=== PATIENT | female | born 1985 | race Hispanic/Latino ===

== ENCOUNTER 2018-06-10 07:21 | Emergency (ER) | payer MEDICAID, OTHER ==
[~2018-06-10] VITALS: Ht 160 cm; Wt 73.5 kg
[~2018-06-10 07:21] MED LIST: NITROFURANTOIN100 M2 ORAL; PHENAZOPYRIDIN200 MG ORAL; ZOFRAN4 MG ORAL
[2018-06-10 07:27] VITALS: BP 106/70
[2018-06-10] MEDS ORDERED: METHOTREXATE2.5 MG PO (07:31)
[2018-06-10 07:56] LABS: APPEARANCE,URINE SLIGHTLY CLOUDY; BILIRUBIN, URINE NEGATIVE (NEGATIVE); GLUCOSE, URINE (UA) NEGATIVE (NEGATIVE); KETONES,URINE NEGATIVE (NEGATIVE); LEUKOCYTE ESTERASE ,URINE 3+ (NEGATIVE); NITRITE,URINE NEGATIVE (NEGATIVE); PH,URINE 7 (4.5-8.0); PROTEIN,URINE 2+ (NEGATIVE); UROBILINOGEN,URINE NORMAL MG/DL (0.0-1.0)
[2018-06-10 08:00] LABS: COLOR,URINE RED
--- NOTE | 2018-06-10 08:10 | Emergency Room Report ---
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 Patient required reconstructive surgery at that time Patient was here last week with symptoms of UTI After being seen here patient was seen by her primary physician And referral was made back to her colorectal specialist However apparently it was incorrectly made to the wrong specialist And patient's referral has been reinitiated Patient has increased discomfort in the suprapubic area She feels that she has increased rectal incontinence Which is similar to her previous condition Denies any upper abdominal pain denies any fevers denies any chest pain or shortness of breath Allergies: Coded Allergies: AMOXICILLIN (Verified Allergy, Unknown, 06/13/18) PENICILLINS (Verified Adverse Reaction, Severe, Shortness of Breath, ) Patient History Past Medical History: see triage record Pertinent Family History: none Last Menstrual Period: currently in her period Now: No Reviewed Nursing Documentation: PMH: Agreed; PSxH: Agreed Nursing Documentation-PMH Past Medical History: No History, Except For Review of Systems All Other Systems: negative except mentioned in HPI Physical Exam Vital Signs Date Time Temp Pulse Resp B/P (MAP) Pulse Ox O2 Delivery O2 Flow Rate FiO2 06/10/18 07:26 97.5 65 18 106/70 99 Room Air Sp02 EP Interpretation: reviewed, normal General Appearance: well appearing, no apparent distress Head: normocephalic, atraumatic Eyes: bilateral eye PERRL, bilateral eye EOMI ENT: hearing grossly normal, normal pharynx, TMs + canals normal, uvula midline Neck: full range of motion, supple, no meningismus, no bony tend Respiratory: lungs clear, normal breath sounds, no rhonchi, no respiratory distress, no retraction, no accessory muscle use Cardiovascular #1: normal peripheral pulses, regular rate, rhythm, no edema, no gallop, no JVD, no murmur Gastrointestinal: normal bowel sounds, non tender, soft, no mass, no organomegaly, non-distended, no guarding, no hernia, no pulsatile mass, no rebound Genitourinary: no CVA tenderness Musculoskeletal: normal inspection Neurologic: oriented x3, responsive, mounted police III-XII nml as tested, motor strength/ tone normal, sensory intact Psychiatric: mood/affect normal Skin: normal color, no rash, warm/dry, palpation normal Lymphatic: normal inspection, no adenopathy Medical Decision Making Diagnostic Impression: Primary Impression: Urinary tract infection Additional Impression: Fistula ER Course Patient has multiple differentials considered Given her history and presentation Repeat presentation of the fistula is possible Patient does not appear septic or toxic Initial blood work is appropriate Patient has follow-up with her colorectal specialist in the next several days I feel that this outpatient follow-up is most appropriate Patient did not have further imaging emergently given her nonseptic non-toxic presentation and consideration for the existing medical condition CBC negative Chemistry negative UA 60-80 white blood cells Last Vital Signs Date Time Temp Pulse Resp B/P (MAP) Pulse Ox O2 Delivery O2 Flow Rate FiO2 06/10/18 07:26 97.5 65 18 106/70 99 Room Air Status: improved Disposition: HOME, SELF-CARE Condition: Improved Scripts Phenazopyridine Hcl* (PYRIDIUM*) 100 Mg Tablet 100 MG ORAL THREE TIMES A DAY, #9 TAB Prov: Brett Vitale DO 06/10/18 Clindamycin Hcl (CLINDAMYCIN HCL) 300 Mg Capsule 300 MG ORAL THREE TIMES A DAY, #10 CAP Prov: Brett Vitale DO 06/10/18 Referrals: NON PHYSICIAN (PCP) Additional Instructions: Follow-up with your colorectal specialist as noted Brett Vitale DO Jun 10, 2018 08:10
[2018-06-10 08:24] LABS: BASOPHILS % (AUTO) 0.8 % (0.0-2.0); EOSINOPHILS % (AUTO) 1.3 % (0.0-3.0); HEMATOCRIT 41.4 % (37.0-47.0); HEMOGLOBIN 13.5 G/DL (12.0-16.0); LYMPHOCYTES % (AUTO) 21.4 % (20.0-45.0); MEAN CORPUSCULAR VOLUME 82 FL (80-99); MONOCYTES % (AUTO) 7.3 % (1.0-10.0); NEUTROPHILS % (AUTO) 69.2 % (45.0-75.0); PLATELET COUNT 322 K/UL (150-450); RED BLOOD COUNT 5.03 M/UL (4.20-5.40); RED CELL DISTRIBUTION WIDTH 12.7 % (11.6-14.8); WHITE BLOOD COUNT 9.5 K/UL (4.8-10.8)
[2018-06-10] MEDS ORDERED: Clindamycin 600mg 50 ML IVPB ONE (08:30)
[2018-06-10 08:43] LABS: ALANINE AMINOTRANSFERASE 43 U/L (12-78); ALBUMIN 3.7 G/DL (3.4-5.0); ALBUMIN/GLOBULIN RATIO 0.7 (1.0-2.7); ALKALINE PHOSPHATASE 77 U/L (46-116); ANION GAP 11 mmol/L (5-15); ASPARTATE AMINO TRANSFERASE 31 U/L (15-37); BILIRUBIN,TOTAL 0.4 MG/DL (0.2-1.0); BLOOD UREA NITROGEN 12 mg/dL (7-18); CALCIUM 8.8 MG/DL (8.5-10.1); CARBON DIOXIDE 24 MMOL/L (21-32); CHLORIDE 103 MMOL/L (98-107); CREATININE 0.7 MG/DL (0.55-1.30); POTASSIUM 3.8 MMOL/L (3.5-5.1); SODIUM 138 MMOL/L (136-145)
[2018-06-10] MEDS ORDERED: CLINDAMYCIN HC300 MG ORAL (09:13)
[2018-06-10] MEDS ORDERED: PHENAZOPYRIDIN100 MG ORAL (09:13)
[2018-06-10 09:26] VITALS: BP 115/85
== END 2018-06-10 09:27 | disposition home or self-care (01) ==
LOC: MERGE 07:50 → EMR 07:50
DX: N39.0 Urinary tract infection, site not specified (principal); Z88.0 Allergy status to penicillin
CPT/HCPCS: 36415; 80053; 81003; 81025; 85025; 87086; 87181; 96365; 99284; S0077

== ENCOUNTER 2019-01-28 14:52 | Emergency (ER) | payer OTHER ==
[~2019-01-28] VITALS: Ht 160 cm; Wt 73.5 kg
[~2019-01-28 14:52] MED LIST changes: +CLINDAMYCIN HC300 MG ORAL; +METHOTREXATE2.5 MG PO; +PHENAZOPYRIDIN100 MG ORAL
[2019-01-28 15:02] VITALS: BP 111/72
--- NOTE | 2019-01-28 15:03 | NUR ---
ED Nurse Note: Pt has been feeling urgency and burning sensation while urinating x 3 days. Pain 04/20. AOx4, VSS lamont. Will cont to monitor.
[2019-01-28] MEDS ORDERED: Phenazopyridine 200mg tab ORAL ONE (15:15)
[2019-01-28 15:27] LABS: APPEARANCE,URINE SLIGHTLY CLOUDY; BILIRUBIN, URINE NEGATIVE (NEGATIVE); COLOR,URINE PALE YELLOW; GLUCOSE, URINE (UA) NEGATIVE (NEGATIVE); KETONES,URINE 1+ (NEGATIVE); LEUKOCYTE ESTERASE ,URINE 3+ (NEGATIVE); NITRITE,URINE NEGATIVE (NEGATIVE); PH,URINE 5 (4.5-8.0); PROTEIN,URINE 3+ (NEGATIVE); UROBILINOGEN,URINE NORMAL MG/DL (0.0-1.0)
--- NOTE | 2019-01-28 15:37 | Emergency Room Report ---
History of Present Illness General Chief Complaint: Female Urogenital Problems Source: Patient Present Illness HPI 33-year-old female presents to the emergency department complaining of 10 out of 10 severity dysuria and urgency x3 days. Patient denies fevers, chills, low back pain, suspicion of or vaginal discharge. Patient denies having abdominal pain or tenderness. She denies nausea or vomiting. Patient states that she is currently on the Nexplanon implant. Denies hematuria she reports a history of UTI 8 months ago which presented with the same symptoms that she is experiencing today. No aggravating or relieving factors. Allergies: Coded Allergies: AMOXICILLIN (Verified Allergy, Unknown, 06/13/18) PENICILLINS (Verified Adverse Reaction, Severe, Shortness of Breath, ) Patient History Past Medical History: see triage record Past Surgical History: none Pertinent Family History: none Last Menstrual Period: 01/12/19 Now: No Reviewed Nursing Documentation: PMH: Agreed; PSxH: Agreed Nursing Documentation-PMH Past Medical History: No History, Except For Review of Systems All Other Systems: negative except mentioned in HPI Physical Exam Vital Signs Date Time Temp Pulse Resp B/P (MAP) Pulse Ox O2 Delivery O2 Flow Rate FiO2 01/28/19 14:57 97.5 60 18 111/72 (85) 98 Room Air Sp02 EP Interpretation: reviewed, normal General Appearance: no apparent distress, alert, GCS 15, non-toxic Head: normocephalic, atraumatic Eyes: bilateral eye normal inspection, bilateral eye PERRL ENT: hearing grossly normal, normal voice Neck: full range of motion Respiratory: lungs clear, normal breath sounds, speaking full sentences Cardiovascular #1: regular rate, rhythm Gastrointestinal: normal bowel sounds, non tender, soft, non-distended, no guarding Genitourinary: normal inspection, no CVA tenderness Musculoskeletal: back normal, gait/station normal, normal range of motion, non- tender Neurologic: alert, oriented x3, responsive, motor strength/tone normal, sensory intact, speech normal, grossly normal Psychiatric: judgement/insight normal Medical Decision Making PA Attestation Dr. Fermin Is my supervising Physician whom patient management has been discussed with. Diagnostic Impression: Primary Impression: Urinary tract infection Qualified Codes: N30.01 - Acute cystitis with hematuria ER Course 33-year-old female presents to the emergency department complaining of 10 out of 10 severity dysuria and urgency x3 days. Patient denies fevers, chills, low back pain, suspicion of or vaginal discharge. Patient denies having abdominal pain or tenderness. She denies nausea or vomiting. Patient states that she is currently on the Nexplanon implant. Denies hematuria she reports a history of UTI 8 months ago which presented with the same symptoms that she is experiencing today. No aggravating or relieving factors. Ddx considered but are not limited to UTi , Pyelo, STI, Stone, , Cystitis Vital signs: are WNL, pt. is afebrile H&PE are most consistent with UTI ORDERS: - UA labs are attached --- elevated WBC's, RBC's, and presence of bacteria consistent with infection. ED INTERVENTIONS: Pyridium PO and Zofran ODT -- pt. reports that oral medications habitually upset her stomach especially abx. DISCHARGE: At this time pt. is stable for d/c to home. Will provide printed patient care instructions, and any necessary prescriptions. Care plan and follow up instructions have been discussed with the patient prior to discharge. Labs Test 01/28/19 15:10 Urine Color Pale yellow Urine Appearance Slightly cloudy Urine pH 5 (4.5-8.0) Urine Specific [place] 1.020 (1.005-1.035) Urine Protein 3+ (NEGATIVE) Urine Glucose (UA) Negative (NEGATIVE) Urine Ketones 1+ (NEGATIVE) Urine Blood 5+ (NEGATIVE) Urine Nitrite Negative (NEGATIVE) Urine Bilirubin Negative (NEGATIVE) Urine Urobilinogen Normal MG/DL (0.0-1.0) Urine Leukocyte Esterase 3+ (NEGATIVE) Urine RBC 5-10 /HPF (0 - 2) Urine WBC 60-80 /HPF (0 - 2) Urine Squamous Epithelial Cells Occasional /LPF Urine Bacteria Few /HPF (NONE) Last Vital Signs Date Time Temp Pulse Resp B/P (MAP) Pulse Ox O2 Delivery O2 Flow Rate FiO2 01/28/19 15:02 97.5 77 20 111/72 98 Room Air Disposition: HOME, SELF-CARE Condition: Stable Scripts Phenazopyridine Hcl* (PYRIDIUM*) 200 Mg Tablet 200 MG ORAL THREE TIMES A DAY for 3 Days, #9 TAB 0 Refills Prov: Jane Reyes 01/28/19 Ondansetron Odt* (ZOFRAN ODT*) 4 Mg Tab.rapdis 4 MG BC EVERY 6 HOURS PRN for Nausea & Vomiting, #10 TAB 0 Refills Prov: Jane Reyes 01/28/19 Nitrofurantoin Monohyd/M-Cryst* (MACROBID 100 MG*) 100 Mg Capsule 100 MG ORAL EVERY 12 HOURS for 5 Days, #10 CAP Prov: Jane Reyes 01/28/19 Referrals: [facility],REFERRING (PCP) Patient Instructions: Urinary Tract Infection Additional Instructions: Take medications as directed. Follow up with a Primary Care Provider in 3-5 days, even if your symptoms have resolved. --Please review list of primary care clinics, if you do not already have a primary care provider Return sooner to ED if new symptoms occur, or current symptoms become worse. - Please note that this Emergency Department Report was dictated using [employer] operator technology software, occasionally this can lead to erroneous entry secondary to interpretation by the dictation equipment. Jane Reyes Jan 28, 2019 15:37
[2019-01-28] MEDS ORDERED: PHENAZOPYRIDIN200 MG ORAL (15:53)
[2019-01-28] MEDS ORDERED: ONDANSETRON ODT4 MG BC (15:53)
[2019-01-28] MEDS ORDERED: NITROFURANTOIN100 M2 ORAL (15:53)
[2019-01-28 15:59] VITALS: BP 118/70
--- NOTE | 2019-01-28 16:00 | NUR ---
ER DISCHARGE NOTE: Patient is cleared to be discharged per ERMD, pt is aox4, on room air, with stable vital signs. pt was given dc and prescription instructions, pt was able to verbalize understanding, pt id band removed without complications. pt is able to ambulate with steady gait. pt took all belongings.
== END 2019-01-28 16:00 | disposition home or self-care (01) ==
LOC: EMR 15:30
DX: N30.01 Acute cystitis with hematuria (principal); Z88.0 Allergy status to penicillin
CPT/HCPCS: 81003; 87086; 87181; 99283

== ENCOUNTER 2019-02-26 08:25 | Emergency (ER) | payer OTHER ==
[~2019-02-26] VITALS: Ht 162.6 cm; Wt 73.5 kg
[~2019-02-26 08:25] MED LIST changes: +ONDANSETRON ODT4 MG BC
[2019-02-26 08:38] VITALS: BP 111/71
--- NOTE | 2019-02-26 08:40 | NUR ---
ED Nurse Note: pt walked in due to burning sensation when urinating started yesterday. pt stated she is taking meds for arthritis and was advise by the pcp to go seek attention immidiately if she has the symptom, pt admitted to have recurrent uti. pt vss. able to give urine sample and was sent to lab. will continue to monitor.
[2019-02-26 08:58] LABS: APPEARANCE,URINE SLIGHTLY CLOUDY; BILIRUBIN, URINE NEGATIVE (NEGATIVE); COLOR,URINE PALE YELLOW; GLUCOSE, URINE (UA) NEGATIVE (NEGATIVE); KETONES,URINE 1+ (NEGATIVE); LEUKOCYTE ESTERASE ,URINE 3+ (NEGATIVE); NITRITE,URINE NEGATIVE (NEGATIVE); PH,URINE 5 (4.5-8.0); PROTEIN,URINE 1+ (NEGATIVE); UROBILINOGEN,URINE NORMAL MG/DL (0.0-1.0)
[2019-02-26] MEDS ORDERED: NITROFURANTOIN100 M2 ORAL (09:12)
[2019-02-26] MEDS ORDERED: PHENAZOPYRIDIN100 MG ORAL (09:12)
[2019-02-26 09:18] VITALS: BP 111/71
--- NOTE | 2019-02-26 09:42 | Emergency Room Report ---
History of Present Illness General Chief Complaint: Female Urogenital Problems Source: Patient Present Illness HPI Patient presents with complaints of discomfort with urination starting yesterday Patient reports that after she had gone to exercise and went to urinate she felt increased discomfort this morning Which made her come to the ER patient had similar symptoms last month Reports that she did Follow-up with her primary physician and did confirm that she had cleared from the previous infection also reports discussing her frequent infections With her differential specialist and there is discussion of possible medication related pathology Currently denies any fevers denies any abdominal pain denies any vomiting Allergies: Coded Allergies: AMOXICILLIN (Verified Allergy, Unknown, 06/13/18) PENICILLINS (Verified Adverse Reaction, Severe, Shortness of Breath, ) Patient History Past Medical History: see triage record Last Menstrual Period: 02/05/19 Now: No : 2 Para: 2 Reviewed Nursing Documentation: PMH: Agreed; PSxH: Agreed Nursing Documentation-PMH Past Medical History: No Stated History Review of Systems All Other Systems: negative except mentioned in HPI Physical Exam Vital Signs Date Time Temp Pulse Resp B/P (MAP) Pulse Ox O2 Delivery O2 Flow Rate FiO2 02/26/19 08:28 97.9 64 16 111/71 (84) 98 Room Air Sp02 EP Interpretation: reviewed, normal General Appearance: well appearing, no apparent distress Head: normocephalic, atraumatic Eyes: bilateral eye PERRL, bilateral eye EOMI ENT: hearing grossly normal, normal pharynx, TMs + canals normal, uvula midline Neck: full range of motion, supple, no meningismus, no bony tend Respiratory: lungs clear, normal breath sounds, no rhonchi, no respiratory distress, no retraction, no accessory muscle use Cardiovascular #1: normal peripheral pulses, regular rate, rhythm, no edema, no gallop, no JVD, no murmur Gastrointestinal: normal bowel sounds, non tender, soft, no mass, no organomegaly, non-distended, no guarding, no hernia, no pulsatile mass, no rebound Genitourinary: no CVA tenderness Musculoskeletal: normal inspection Neurologic: oriented x3, responsive, kettle cook III-XII nml as tested, motor strength/ tone normal, sensory intact Psychiatric: mood/affect normal Skin: no rash Lymphatic: normal inspection, no adenopathy Medical Decision Making Diagnostic Impression: Primary Impression: Urinary tract infection ER Course Multiple differentials are in consideration patient did have urine sample tested and again it does show significant White blood cells in the urine Patient does not show any signs of systemic involvement Afebrile there is no sign of fevers patient did have broad sensitivity to antibiotics previously And reported doing well with her previous antibiotic she is again encouraged to follow closely with her primary physician Labs Test 02/26/19 08:36 Urine Color Pale yellow Urine Appearance Slightly cloudy Urine pH 5 (4.5-8.0) Urine Specific [place] 1.015 (1.005-1.035) Urine Protein 1+ (NEGATIVE) Urine Glucose (UA) Negative (NEGATIVE) Urine Ketones 1+ (NEGATIVE) Urine Blood 5+ (NEGATIVE) Urine Nitrite Negative (NEGATIVE) Urine Bilirubin Negative (NEGATIVE) Urine Urobilinogen Normal MG/DL (0.0-1.0) Urine Leukocyte Esterase 3+ (NEGATIVE) Urine RBC 5-10 /HPF (0 - 2) Urine WBC 60-80 /HPF (0 - 2) Urine Squamous Epithelial Cells Few /LPF (NONE/OCC) Urine Bacteria Few /HPF (NONE) Urine HCG, Qualitative Negative (NEGATIVE) Last Vital Signs Date Time Temp Pulse Resp B/P (MAP) Pulse Ox O2 Delivery O2 Flow Rate FiO2 02/26/19 09:18 97.9 64 16 111/71 98 Room Air Status: improved Disposition: HOME, SELF-CARE Condition: Improved Scripts Phenazopyridine Hcl* (PYRIDIUM*) 100 Mg Tablet 100 MG ORAL THREE TIMES A DAY, #12 TAB Prov: Brett Vitale DO 02/26/19 Nitrofurantoin Monohyd/M-Cryst* (MACROBID 100 MG*) 100 Mg Capsule 100 MG ORAL EVERY 12 HOURS for 7 Days, CAP Prov: Brett Vitale DO 02/26/19 Referrals: NON PHYSICIAN (PCP) Patient Instructions: Urinary Tract Infection Additional Instructions: Patient is provided with the discharge instructions notified to follow up with primary doctor in the next 2-3 days otherwise return to the er with any worsening symptoms. Please note that this report is being documented using [employer] technology. This can lead to erroneous entry secondary to incorrect interpretation by the dictating instrument. Brett Vitale DO Feb 26, 2019 09:42
== END 2019-02-26 09:18 | disposition home or self-care (01) ==
LOC: EMR 08:57
DX: N39.0 Urinary tract infection, site not specified (principal); Z88.0 Allergy status to penicillin
CPT/HCPCS: 81003; 81025; 87086; 87181; 99283